=== PATIENT | male | born 1990 | race Caucasian/White ===

== ENCOUNTER 2019-03-19 13:03 | Inpatient (IN) ==
[2019-03-19] MEDS ORDERED: ZOFRAN IV ONE (13:42)
[2019-03-19] MEDS ORDERED: MORPHINE IV ONE ×2 (13:42→15:38)
[2019-03-19] MEDS ORDERED: NS 1,000 ML IV ONE (13:42)
[2019-03-19 14:32] LABS: BILIRUBIN URINE NEGATIVE (NEGATIVE); BLOOD URINE NEGATIVE (NEGATIVE); CLARITY CLEAR (CLEAR); COLOR YELLOW; GLUCOSE URINE NEGATIVE (NEGATIVE); KETONE URINE 3+(Large) mg/dL (NEGATIVE); LEUKOCYTES URINE NEGATIVE (NEGATIVE); NITRITE URINE NEGATIVE (NEGATIVE); PH URINE 6.5; PROTEIN URINE TRACE mg/dL (NEGATIVE); SP GRAVITY URINE 1.015; UROBILINOGEN URINE NORMAL
[2019-03-19 14:36] LABS: URINE BACTERIA NEGATIVE /HFP; URINE EPITHELIAL CELLS <10 /HPF (<10); URINE RBC <10 /HPF (<10); URINE SOURCE CLEAN CATCH; URINE WBC <10 /HPF (<10)
[2019-03-19 14:50] LABS: BASO# 0.01 X1000 (0.0-0.2); BASO% 0.1 % (0.0-0.8); EOS# 0.01 X1000 (0.0-0.7); EOS% 0.1 % (0.0-10.0); HEMATOCRIT 43.4 % (42.0-52.0); HEMOGLOBIN 14.2 g/dL (14.0-18.0); IMM GRAN# 0.02 X1000 (0.0-0.04); IMM GRAN% 0.2 % (0.0-0.5); LYMPH# 0.95 X1000 (1.2-3.4); LYMPH% 7.9 % (20.5-51.1); MCH 27.4 PG (27-31); MCHC 32.7 g/dL (33-37); MCV 83.6 FL (81-99); MONO# 0.65 X1000 (0.11-0.59); MONO% 5.4 % (1.7-9.3); MPV 10.6 FL (7.4-10.4); NEUT# 10.31 X1000 (1.4-6.5); NEUT% 86.3 % (42.2-75.2); PLT 169 X1000 (130-400); RBC 5.19 XMIL (4.7-6.1); RDW 13.1 % (11.5-14.5); WBC 11.95 X1000 (4.8-10.8)
[2019-03-19 14:53] LABS: AGAP 14; ALBUMIN 4.9 g/dL (3.5-5.0); ALKALINE PHOSPHATASE 59 U/L (32-122); BUN 11 mg/dL (8-22); CALCIUM 9.6 mg/dL (8.8-10.2); CHLORIDE 99 mmol/L (98-107); COSMO 274; CREATININE 0.8 mg/dL (0.7-1.2); ESTIMATED GFR > 60; GLUCOSE 116 mg/dL (70-104); GOT 17 U/L (10-34); GPT 19 U/L (10-44); LIPASE 20 U/L (13-60); POTASSIUM 4.5 mmol/L (3.5-5.1); SODIUM 137 mmol/L (136-145); TCO2 25 mmol/L (25-35); TOTAL PROTEIN 7.8 g/dL (6.3-8.3)
--- NOTE | 2019-03-19 15:22 | Diag Imaging Result Doc PS360 ---
EXAM: CT ABD/PELVIS W/IV CONT ONLY HISTORY: RLQ PAIN. TECHNIQUE: CT abdomen and pelvis with intravenous contrast COMPARISON: None. FINDINGS: No calcified gallstones or adjacent inflammation. Normal liver, spleen, pancreas, adrenal glands, and kidneys except for a small left renal cyst. Normal aorta. The appendix is thickened with a diameter of 11 mm. Mild adjacent inflammation. No free air. No abscess. No bowel obstruction. There are scattered colonic diverticula. Urinary bladder is moderately distended and is normal. Normal prostate. IMPRESSION: Acute appendicitis This report was discussed with Dr. Edwards in the [place] emergency room on 03/19/2019 at 3:20 PM and was readback. This exam was performed using automated exposure control, adjustment of mA or kV according to patient size, and/or use of iterative reconstruction technique. Electronically signed by Chace Souza 03/19/2019 3:19 PM
[2019-03-19] MEDS ORDERED: ZOSYN 3.375 GM in NS 50 ML IV ONE (16:18)
--- NOTE | 2019-03-19 16:18 | PROVIDER DOCUMENTATION ---
This chart was entered by Taya Mcgill Scribe, acting as scribe for Linda Edwards DO. HPI-Abdominal Pain/GI Problem - General Chief Complaint: Abdominal Pain Stated Complaint: ABD PAIN Time Seen by Provider: 03/19/19 13:12 Source: patient, family Allergies/Adverse Reactions: Patient Allergies Allergy/AdvReac Type Severity Reaction Status Date / Time Penicillins Allergy RASH Verified 08/31/15 10:39 Home Medications: Home Medication List Medication Instructions Recorded Confirmed Last Taken Type NK [No Home Medications] 03/19/19 03/19/19 Unknown History - History of Present Illness-ABD Nature of Presenting Problems: 28 yo wm presents to the ed with c/o lower abd pain acute onset last night and when he woke this am pain was 10/10 with nausea and vomiting x4. Pain is non- radiating. It began as diffuse but is most notable in the RLQ. He states decreased appetite. No documented fever. Abdominal Pain Onset Location: reports: suprapubic Pain Radiation: reports: RLQ Quality of Pain: reports: cramping Severity in ED: reports: moderate, severe Onset/Duration: reports: last night Timing: reports: still present, constant, getting worse Activities at Onset: reports: light activity Exposure to sick contacts?: No Modifying Factors: improves with: nothing. worse with: palpation Associated Symptoms: reports: constipation, nausea, vomiting. denies: back/neck pain, chest pain, cough, fever/chills, headaches, heartburn, shortness of breath, weakness Last BM: unsure Dark Stools Present?: reports: none noticed Rectal Bleeding: reports: none # of Diarrhea Episodes: 0 Rectal Pain: reports: none # of Vomiting Episodes: 4 Emesis Description: reports: none Bruising or Bleeding Gums?: No Similar Symptoms Previously?: No Recently seen or treated by another doctor?: No Review of Systems - Adult - REVIEW OF SYSTEMS - ADULT Constitutional: denies: chills, fever Eyes: reports: no symptoms reported Ears, Nose, Mouth & Throat: reports: no symptoms reported Cardiovascular: denies: chest pain, palpitations Respiratory: denies: cough, shortness of breath, wheezing Gastrointestinal: reports: see HPI, abdominal pain, nausea, vomiting. denies: diarrhea Genitourinary: reports: no symptoms reported Musculoskeletal: denies: back pain, neck pain Integumentary: reports: no symptoms reported Neurological: denies: dizziness/vertigo, headache/migraines Psychiatric: reports: no symptoms reported Endocrine: reports: no symptoms reported Hematologic/Lymphatic: reports: no symptoms reported Allergic/Immunologic: reports: no symptoms reported All Other Systems: Reviewed and Negative Past History - Adult - PAST MEDICAL HISTORY-ADULT Review of Records: reports: Old Records Reviewed, Nursing Assessment Review, Medications Reviewed, Social history reviewed & non-contributory. 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) - IMMUNIZATION STATUS Childhood Immunizations: See Nurse Assessment Flu Vaccine: See Nurse Assessment - FAMILY HISTORY Family History: reviewed, not pertinent - SOCIAL HISTORY Smoking: denies Substance Use: denies Alcohol Use Frequency: never Living Situation: family Physical Exam-General - PHYSICAL EXAM-ADULT Initial Vital Signs Reviewed: Yes - CONSTITUTIONAL General Appearance: appears well, alert, mild distress, obese - EYES Eyes: PERRL/EOMI, pink conjunctivae - HEAD, EARS, NOSE, MOUTH & THROAT HENMT: moist mucous membranes - NECK Neck: non-tender, full range of motion, supple, normal inspection - RESPIRATORY Respiratory: chest non-tender, lungs clear, normal breath sounds - CARDIOVASCULAR Cardiovascular: normal peripheral pulses, regular rate, rhythm - GASTROINTESTINAL (ABDOMEN) Abdominal Exam: normal bowel sounds, soft, guarding, tenderness (suprapubic and greater in RLQ), other (pt c/o nausea). negative: distended, rigid, rebound - GENITOURINARY Male Genitalia: deferred Rectal Exam: deferred Hemoccult Exam: deferred - LYMPHATIC Lymphatic: no adenopathy - MUSCULOSKELETAL Back Exam: normal inspection, no CVA tenderness, no vertebral tenderness Extremity: normal range of motion, non-tender, normal inspection, no pedal edema , no calf tenderness, normal capillary refill, pelvis stable - SKIN Integumentary: normal color, normal turgor, warm/dry - NEUROLOGIC Neurologic: grossly normal - PSYCHIATRIC Psych/Mental Status: normal mood/affect, normal thought content, normal thought process, oriented x 3 Progress - PLAN OF CARE/RESULTS Progress/Plan/Lab Results: Vital Signs - 8 hr 03/19/19 13:05 Temperature 97.9 F Pulse Rate 77 Respiratory Rate 16 Blood Pressure 159/84 O2 Sat by Pulse Oximetry 98 Clinically stable while here. Considerations include but not limited to: shikha endicitis, uti, diverticulitis, colitis. CT shows acute appendicitis, non- perforated. Case discussed with Dr Mcgill who accepted him in transfer to . Result Diagrams: 03/19/19 13:15 03/19/19 13:15 - REASSESSMENT Reassessment #1 Time Reassessed: 15:19 Status: unchanged - CT/MRI 1 CT Study: Abdomen, Pelvis Impression: Abnormal (EXAM: CT ABD/PELVIS W/IV CONT ONLY HISTORY: RLQ PAIN. TECHNIQUE: CT abdomen and pelvis with intravenous contrast COMPARISON: None. FINDINGS: No calcified gallstones or adjacent inflammation. Normal liver, spleen, pancreas, adrenal glands, and kidneys except for a small left renal cyst. Normal aorta. The appendix is thickened with a diameter of 11 mm. Mild adjacent inflammation. No free air. No abscess. No bowel obstruction. There are scattered colonic diverticula. Urinary bladder is moderately distended and is normal. Normal prostate. IMPRESSION: Acute appendicitis This report was discussed with Dr. Edwards in the [place] emergency room on 03/19/2019 at 3:20 PM and was readback. This exam was performed using automated exposure control, adjustment of mA or kV according to patient size, and/or use of iterative reconstruction technique. Electronically signed by Chace Godfrey 03/19/2019 3:19 PM 03/19/19 1519 Interpreting Physician: Chace Godfrey MD Dictated Date/Time: 03/19/19 1515 cc: Linda Edwards DO; None,PCP), Discussed w/Radiology - CONSULTS/PCP/HOSPITALIST Notification #1 *Consult/PCP/Hospitalist*: dr godfrey Time Discussed: 15:20 Reason/Comments: phone consult #2 Consult: dr mcgill Time Discussed: 15:38 (spoke with nurse and dr mcgill will return call [facility]) Departure - Departure Date of Disposition Decision: 03/19/19 Time of Disposition Decision: 16:10 DIAGNOSIS: Appendicitis Qualifiers: Appendicitis type: acute appendicitis Acute appendicitis type: unspecified acute appendicitis type Qualified Code(s): K35.80 - Unspecified acute appendicitis Disposition: [place] [id number] Certified Medical Emergency: Emergent Condition: Fair Referrals and Follow-Ups: None,PCP [Primary Care Provider] - - Critical Care Note This patient required my direct & personal management of CC.: No Attestation - Physician/ SHIKHA Attestation Patient care was provided by Advanced Practice Provider:: No The physician spent face to face time with patient:: Yes Advanced Practice Provider documentation review:: Supervising physician onsite and consulted in the evaluation and care of this patient. The physician did have a face to face encounter with the patient. This chart was documented by the indicated scribe, (Taya Mcgill Scribe) and accurately reflects the services I performed and decisions made by me, Linda Edwards DO, as attested by the provider's signature.
[2019-03-19] MEDS ORDERED: MEFOXIN 2 GM/D5W IV ONE (16:27)
[2019-03-19] MEDS ORDERED: XYLOCAINE-MPF 2% ONE (16:49)
[2019-03-19] MEDS ORDERED: DIPRIVAN 1% ONE (16:50)
[2019-03-19] MEDS ORDERED: NORCURON ONE (16:50)
[2019-03-19] MEDS ORDERED: SODIUM CHLORIDE 0.9% 10 ML ONE (16:50)
[2019-03-19] MEDS ORDERED: QUELICIN (DOSE) ONE (16:50)
[2019-03-19] MEDS ORDERED: MEFOXIN 2 GM in NS 50 ML IV ONE (17:00)
[2019-03-19] MEDS ORDERED: LR 1,000 ML ONE ×2 (17:14→17:29)
[2019-03-19] MEDS ORDERED: SENSORCAINE 0.25%/EPI 1:200,000 ONE (17:14)
[2019-03-19] MEDS ORDERED: VERSED ONE (17:33)
[2019-03-19] MEDS ORDERED: FENTANYL ONE (17:58)
[2019-03-19] MEDS ORDERED: NEOSTIGMINE ONE (18:06)
[2019-03-19] MEDS ORDERED: ROBINUL ONE (18:06)
[2019-03-19] MEDS ORDERED: SODIUM CHLORIDE 0.9% INJ PRN (20:07)
[2019-03-19] MEDS ORDERED: PHENERGAN IV PRN (20:07)
[2019-03-19] MEDS ORDERED: NORCO-10 PO PRN (20:07)
[2019-03-19] MEDS ORDERED: LR 1,000 ML IV SCH (20:15)
[2019-03-19] MEDS: MORPHINE IV PRN (20:46)
--- NOTE | 2019-03-19 21:43 | HISTORY AND PHYSICAL ---
HISTORY OF PRESENT ILLNESS: Mr. Rajesh Park is a 28-year-old, white male who presented to [facility] this morning with a 12-hour history of abdominal pain localizing to his right lower quadrant. 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 Part of his evaluation was a CT scan of his abdomen and pelvis which suggested acute appendicitis as did his exam. He was transferred from [facility] to [facility] for further evaluation. PAST MEDICAL HISTORY: None. MEDICATIONS: None. ALLERGIES: Penicillin. SOCIAL HISTORY: His was at the bedside. 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 REVIEW OF SYSTEMS: A 14-point review of systems was performed and reviewed, and besides the History of Present Illness, there were no positives on the Review of Systems. FAMILY HISTORY: Reviewed and noncontributory. PHYSICAL EXAMINATION: GENERAL: Rajesh Park is a stocky, overweight young white male who is otherwise strong and appears to be healthy. He wears a coronel. He has no jaundice. No oral lesions. No cervical or supraclavicular lymphadenopathy. HEART: Regular rate. LUNGS: Clear to auscultation and percussion bilaterally. ABDOMEN: Soft. He is tender in the right lower quadrant and he has right-sided costovertebral tenderness. RECTAL: Exam was not performed. EXTREMITIES: He does have palpable peripheral pulses. No peripheral edema. NEUROLOGIC: He is alert and oriented x3 and appropriate. IMPRESSION: Acute appendicitis. PLAN: Laparoscopic, possible open, appendectomy this evening. I have discussed the procedure in detail with him and his in Outpatient Surgery at [facility]. We specifically discussed risks of surgery, which include bleeding, infection, injury to intra-abdominal contents with trocar placement, removal of a normal appendix, possible ruptured appendix requiring prolonged hospitalization, leakage from the appendiceal stump requiring reoperation for drainage. He understands the need for surgery and its risks, and he wants to proceed. cc: Jasmyne Thompson MD
--- NOTE | 2019-03-20 01:47 | OPERATIVE NOTE ---
PROCEDURE DATE: 03/19/2019 PREOPERATIVE DIAGNOSIS: Acute appendicitis. POSTOPERATIVE DIAGNOSIS: Acute appendicitis. PRINCIPAL PROCEDURE: Laparoscopic appendectomy. SURGEON: Jasmyne Thompson MD. ANESTHESIA: General, in addition to local anesthetic. ESTIMATED BLOOD LOSS: 25 mL. DRAINS: None. INDICATIONS: Rajesh Park is a 28-year-old, overweight white male who has a 24-hour history of abdominal pain which is localized to his right lower quadrant. A CT scan was performed at [facility] ER, which suggested acute appendicitis. He was transferred from [place] to [facility] for surgical treatment. FINDINGS: He had acute appendicitis without rupture. His liver appeared to be normal, as did his gallbladder. The surface of the bowel also appeared to be normal. His appendix was acutely inflamed but not ruptured. DESCRIPTION OF PROCEDURE: The patient was brought to the operating room, placed supine, received general anesthesia, was intubated. Chaudhary catheter tube was placed. His abdomen was prepped and draped within a sterile field. I made a small incision below the umbilicus with a 15 blade scalpel. He received 2 g of Mefoxin prior to surgery. I placed a Veress needle through this incision into the abdomen. Pneumoperitoneum was established, the Veress needle was removed, and I used step trocars. I placed an 11 mm step trocar through this incision at the umbilicus. A camera was placed through this port, and the abdomen was explored for injury, there was none. I placed 2 other trocars under direct vision of the camera. I placed a 12 mm step trocar suprapubic area midline under direct vision, and then a 5 mm step trocar right lower quadrant under direct vision. The camera was at the umbilicus. I used a grasper and dissector at our lower trocar sites and I easily identified the appendix and mobilized it. I used a gold load Endo-JOVAN to come across the appendiceal mesentery. I used a reload of this Endo-JOVAN gold load to come across the base of the appendix. I removed the appendix through our 12 mm port site using an Endo bag. The port was placed back through this incision and the area of operation was thoroughly inspected, irrigated, and the irrigation was removed with suction. There was no evidence of ongoing bleeding or leakage from the appendiceal stump. We were happy with the way the appendiceal stump looked. No drains were left. All trocars removed under direct vision of the camera. The pneumoperitoneum was allowed to dissipate. I used [id number] 2-0 Vicryl stitches to reapproximate the fascia at our midline incisions, and then all skin was closed with 4-0 Monocryl subcuticular stitches. Steri-Strips were applied. We will remove the Chaudhary catheter tube. He will go the recovery room, be admitted overnight. cc: Jasmyne Thompson MD
[2019-03-20] MEDS: MORPHINE IV PRN (01:51)
[2019-03-20 08:05] VITALS: BP 110/54
--- NOTE | 2019-03-21 07:39 | DISCHARGE SUMMARY ---
ADMISSION DATE: 03/19/2019 DISCHARGE DATE: 03/20/2019 ADMITTING DIAGNOSIS: Acute appendicitis. DISCHARGE DIAGNOSIS: Acute appendicitis. PRINCIPAL PROCEDURE: Laparoscopic appendectomy on 03/19/2019. DISCHARGE DIET: Regular. DISCHARGE DISPOSITION: He will return to our outpatient offices in 7 to 10 days for recheck. DISCHARGE MEDICATIONS: He will be given [place] 10 p.r.n. pain. DISCHARGE DISABILITY: Full. HOSPITAL COURSE: Mr. Rajesh Park is a 28-year-old white male who had initially presented to [facility] Emergency Department with a 12 to 24 hour history of abdominal pain localizing to his right lower quadrant. As part of his emergency department evaluation, he underwent a CT scan of his abdomen and pelvis which suggested acute appendicitis as did his exam. He was transferred from [facility] to [facility] for surgical care. On the day of presentation, he went to the operating room and underwent a laparoscopic appendectomy for acute appendicitis without rupture. We felt the operation went safely. No drains were left. After surgery, he went to the recovery room and then to the [address] [place] [address] [place]. On postop day 1, he was clinically improved. He was tolerating liquids. He was able to ambulate safely in his room, and was felt safe to discharge him to his home under the care of his with followup in our outpatient office in 7 to 10 days. He knows to contact us with any increasing abdominal pain, fever, nausea and vomiting. cc: Jasmyne Thompson MD
== END 2019-03-20 10:04 | disposition home or self-care (01) | DRG 343 ==
LOC: P.ED 13:03 → SURHOLD 16:54 → 4N 19:49
PROVIDERS: ADMIT Surgery; ATTEND Surgery